=== PATIENT | female | born 1975 | race Caucasian/White ===

== ENCOUNTER 2020-02-25 11:38 | Emergency (ER) | payer OTHER ==
[~2020-02-25] VITALS: Ht 165.1 cm; Wt 65.3 kg
--- NOTE | 2020-02-25 15:21 | PHYS DOC ---
Past History Past Medical History: No Pertinent History Past Surgical History: Cholecystectomy, Gastric Bypass, Tubal ligation Alcohol Use: None Adult General Chief Complaint Chief Complaint: LACERATION/AVULSION HPI HPI Patient is a healthy 45-year-old female who presents for right palmar laceration. 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 Patient reported immediate pain and promptly came to our ER for evaluation. Hemostasis achieved naturally. Patient still able to wiggle fingers without any motor or sensory disruption, no other neurologic symptoms reported. Admits focal pain to right palmar surface of hand. Not on any blood thinners. Tetanus is out of date Review of Systems Review of Systems Fourteen body systems of review of systems have been reviewed. See HPI for pertinent positives and negative responses, other bergman all other systems are negative, non-pertinent or non-contributory Allergies Allergies Allergies Coded Allergies Type Severity Reaction Last Updated Verified No Known Drug Allergies 02/25/20 No Physical Exam Physical Exam Constitutional: Well developed, well nourished, no acute distress, non-toxic appearance. HENT: Normocephalic, atraumatic, bilateral external ears normal, oropharynx moist, no oral exudates, nose normal. Eyes: PERRLA, EOMI, conjunctiva normal, no discharge. Neck: Normal range of motion, no tenderness, supple, no stridor. Cardiovascular: Heart rate regular, sinus rhythm, no murmurs rubs or gallops Lungs & Thorax: Bilateral breath sounds clear to auscultation Abdomen: Bowel sounds normal, soft, no tenderness, no masses, no pulsatile masses. Nonsurgical abdomen, no peritoneal signs Skin: Warm, dry, no erythema, no rash. Palmar laceration approximately 7 cm in length along palmar crease of hyperthenar eminence, extremely superficial with approximately 3 cm worth of entirety of laceration penetrating past epidermis into the dermis with mild subcutaneous tissue, no tendon involvement, foreign bodies present and/or muscles impaired and/or interrupted Back: No tenderness, no CVA tenderness. Extremities: No tenderness, no cyanosis, no clubbing, ROM intact, no edema. Cap refill less than 3 seconds of bilateral upper extremities Neurologic: Alert and oriented X 3, normal motor & sensory function, no focal deficits noted. Psychologic: Affect normal, judgement normal, mood normal. Current Patient Data Vital Signs Vital Signs Date Time Temp Pulse Resp B/P (MAP) Pulse Ox O2 Delivery O2 Flow Rate FiO2 02/25/20 12:14 97.9 56 18 119/50 (73) 99 Room Air EKG EKG [] Radiology/Procedures Radiology/Procedures [] Heart Score Risk Factors: Risk Factors: DM, Current or recent (<one month) smoker, HTN, HLP, family history of CAD, obesity. Risk Scores: Risk Factors: DM, Current or recent (<one month) smoker, HTN, HLP, family history of CAD, obesity. Course & Med Decision Making Course & Med Decision Making Pulmonary laceration too superficial to benefit from sutures, joint decision made to Dermabond which was performed without issue. Tetanus immunization updated Wound care instructions given. Continued supportive care advised. Write a short term prescription of narcotic pain medication after extensive education on risk benefits of taking such medication with patient Strict return precautions were discussed with good understanding by patient, all questions and concerns addressed prior to ER departure in stable condition Rudolph Disclaimer Rudolph Disclaimer This electronic medical record was generated, in whole or in part, using a voice recognition dictation system. Laceration Repair Lac Repair Indication: Pulmonary laceration Procedure: The patient's pulmonary laceration was cleansed with copious amounts of tap water. Site was cleansed. Dermabond was used and applied along entirety of laceration with close approximation and closure of skin borders. Remains neurovascularly intact, motor and sensory function fully intact after procedure. Total repaired wound length: 7 cm Other Items: Dermabond The patient tolerated the procedure well without any observed and/or reportable complications. Departure Departure: Impression: Primary Impression: Laceration Disposition: 01 DC HOME SELF CARE/HOMELESS Condition: STABLE Referrals: YOUSIF MARTÍNEZ MD (PCP) Patient Instructions: Acetaminophen; Oxycodone tablets, Laceration Care, Adult Additional Instructions: As instructed prior to ER departure, please call your primary care physician to be seen within upcoming 72 hours for repeat examination Dermabond, type body glue was used to seal your palmar wound closed Please use attached prescribed narcotic medications, [place], for severe pain only If any concerning signs or symptoms arise prior to outpatient follow-up please do not hesitate to come back for repeat evaluation It was a pleasure to take care of you today and I wish you a speedy recovery Scripts Hydrocodone Bit/Acetaminophen (NORCO 5-325 TABLET) 1 Each Tablet 1 TAB PO PRN Q6HRS PRN for PAIN, #10 TAB 0 Refills Prov: VÍCTOR LONG DO 02/25/20 VÍCTOR LONG DO Feb 25, 2020 15:21
[2020-02-25] MEDS ORDERED: DIPH,PERTUSS(ACELL),TET VAC/PF 0.5 ML SYRINGE. VAX IM ONE (15:30)
[2020-02-25] MEDS ORDERED: HYDROcodone/APAP 7.5/325MG 1 TAB TABLET PO ONE (15:30)
[2020-02-25] MEDS ORDERED: BACITRACIN ZINC TOPICAL OINT PACKET. TP ONE (16:05)
[2020-02-25] MEDS ORDERED: HYDR-3165 PO (16:14)
[2020-02-25 16:20] VITALS: BP 138/92
== END 2020-02-25 16:23 | disposition home or self-care (01) ==
LOC: ER 11:38
DX: S61.411A Laceration without foreign body of right hand, initial encounter (principal); Z98.84 Bariatric surgery status; W26.8XXA Contact with other sharp object(s), not elsewhere classified, initial encounter; Y93.89 Activity, other specified; Y92.89 Other specified places as the place of occurrence of the external cause; Y99.8 Other external cause status
CPT/HCPCS: 12002; 90471; 90715; 99283